=== PATIENT | female | born 1940 | race Caucasian/White ===

== ENCOUNTER → 2020-06-11 | Outpatient (CLI) | payer OTHER ==
[~2020-06-11] MED LIST: ALLOPURINOL 10100 M1 PO; CARDIZEM CD 30300 M1 PO; CARVEDILOL12.5 MG PO; DULOXETINE HCL60 MG PO; EVISTA PO; LEVOTHYROXINE100 MCG PO; LORAZEPAM 0.50.5 MG PO; NEURONTIN 300M300 M2 PO; OLMESARTAN MEDO40 MG PO; PRAVASTATIN SOD80 MG PO; PROBIOTIC1 EAC7 PO; VITAMIN D3100 MCG PO; WARFARIN SODIUM5 MG PO
== END ==
LOC: LAB 10:39
PROVIDERS: ATTEND Anesthesiology
DX: Z20.822 Contact with and (suspected) exposure to COVID-19 (principal)

== ENCOUNTER → 2020-06-13 | Day surgery (SDC) | payer OTHER, MEDICARE ==
[~2020-06-13] VITALS: Ht 154.9 cm; Wt 70.8 kg
--- NOTE | ~2020-06-13 | O ---
[facility] [place] [address] OPERATIVE REPORT Name: ROBERT MCLEAN Room #: [facility] [id number] Admission: 06/13/20 Attend Phys: Dwayne Wilson MD Discharge: Date of : 42 Report #: [id number] THIS REPORT FOR: cc: Dwayne Mulligan MD, John R. MD Quinn,Dwayne Argueta MD ~ DATE OF SERVICE: 06/13/2020 PREOPERATIVE DIAGNOSES: 1. History of malignancy, right breast. 2. Acquired absence bilateral breasts. 3. Suspected rupture/hematoma, left breast. 4. Excess redundancy skin following previous mastectomy, right lateral chest. POSTOPERATIVE DIAGNOSES: 1. History of malignancy, right breast. 2. Acquired absence bilateral breasts. 3. Suspected rupture/hematoma, left breast. 4. Excess redundancy skin following previous mastectomy, right lateral chest. PROCEDURES: 1. Removal of bilateral breast implants, both noted to be intact. 2. Replacement bilateral breast implants with [place] Memory[employer] smooth high profile Xtra breast implants, catalog #[id number] each containing 755 mL of gel silicone. 3. Excision of redundant skin, right lateral chest wall. SURGEON: Dwayne Wilson MD ANESTHESIA: General. ESTIMATED BLOOD LOSS: Minimal. DRAINS: None. COMPLICATIONS: None. COUNTS: Needle, sponge, instrument counts were correct at the end of the case. DESCRIPTION OF PROCEDURE: The patient is a 79-year-old female who presents following previous mastectomy approximately 10-15 years ago. She presents now with what appeared to be a rupture of her left breast implant on MRI. She presents now for definitive correction, replacement of the implants and she has asked that she would like to be slightly larger on each side. [facility] [address] [place] [address] OPERATIVE REPORT Name: ROBERT MCLEAN [place] Room #: [facility] [place]#: [id number] Admission: 06/13/20 Attend Phys: Dwayne Wilson MD Discharge: Date of : 42 Report #: [id number] DESCRIPTION OF PROCEDURE: The patient was marked in the holding area in the operating room. In general, the anterior chest was prepped and draped. The inframammary incisions were infiltrated with local, prepped and draped, incisions were created. On the right side, the pocket was entered. The implant was removed and the pocket was copiously irrigated. This implant was noted to be intact. Markings were made in the record terms of the documentation on the implant itself. The pocket was copiously irrigated. The sizer implant was then inserted as listed above, at which time the same procedure carried out on the left side. Upon entry into the pocket capsule, immediately fluid ____ forth and under pressure, it is ejected approximately 5 to 6 feet from the entry wound. The volume was collected and noted to be at least 200-300 mL of fluid, mostly old blood. It appeared to be quite old in nature. At this time, the capsule was completely opened and the implant was removed, noted to be intact again. The pocket was completely irrigated and scrubbed debrided, irrigated with antibiotic solution at which time the sizer implant was inserted on the side as well. The patient was placed in the sitting position. The overall effect was excellent. Therefore, the patient was placed supine. The implant sizers were removed. The pockets were copiously irrigated with antibiotic solution and then the permanent implants were inserted with the funnel no-touch technique. Further local antibiotic instilled just prior to completing wound closure with a 3-0 Monocryl on the capsule, Insorb skin arlette on the dermis and the skin with running 3-0 Monocryl, interrupted 5-0 nylon, Steri-Strips were later applied. The right lateral chest skin access was elliptically excised as previously marked in the holding area after being injected with local. The wound was closed after hemostasis was achieved and cautery with Insorb skin arlette and a running 3-0 Monocryl, interrupted 5-0 nylons and Steri-Strips again applied. Occlusive bulky dressing with an Kaz wrap applied. The patient tolerated the procedure well and was taken to the recovery room in stable condition to be discharged ____ prescriptions for pain meds and antibiotics and to see me in the office for any instructions with any problems at all. The skin excision was in excess of 25 cm in length. By: [id number] Dwayne Wilson MD /nt
[2020-06-13 12:12] LABS: HEMATOCRIT 47.2 % (37.0-47.0); HEMOGLOBIN 15.5 gm/dL (12.0-15.0)
[2020-06-13 12:27] LABS: APTT 21.6 Seconds (24.5-32.8); INR 0.98; PROTIME 10.7 Seconds (9.3-11.4)
[2020-06-13 12:44] VITALS: BP 130/89
--- NOTE | 2020-06-13 16:35 | EKG ---
[place] [address] [address] [place] [address] ELECTROCARDIOGRAM REPORT Name: ROBERT MCLEAN Room #: [facility]#: [id number] Admission: 06/13/20 Attend Phys: Dwayne Wilson MD Discharge: Date of : 42 Report #: [id number] [facility] Test Date: 2020-06-13 Test Time: 12:32:56 Pat Name: ROBERT MCLEAN Department: Room: Gender: [employer] T[employer]: TREVIN : 1940 Requested By: Dwayne Wilson Order Number: [id number] MD: Anil Gill Measurements Intervals Patriot Rate: 83 P: TN: QRS: -24 QRSD: 86 T: 5 QT: 420 QTc: 494 Interpretive Statements Atrial fibrillation Ventricular premature complex Borderline left axis deviation Minimal ST depression, lateral leads Borderline prolonged QT interval Compared to ECG 09/30/1995 10:08:00 ST (T wave) deviation now present Sinus rhythm no longer present Electronically Signed On 06-13-2020 16:34:51 CDT by Anil Gill [email or web address] <ELECTRONICALLY SIGNED> By: Anil Gill MD, [facility] 06/13/20 1634 1232 1232 Anil Gill MD, [facility] /EPI
--- NOTE | 2020-06-19 16:06 | PATH ---
[facility] [address] [address] PATHOLOGY RPT PROCEDURE Name: EYSIKA MARISCAL Room #: [facility] M.R.#: [id number] Admission: 06/13/20 Date of : 42 Discharge: Report #: [id number] Path Case #: [id number] [facility] Accession Number: [id number] . 01 Material submitted: . PART A: breast - RIGHT BREAST IMPLANT. Modifiers: right PART B: breast - LEFT BREAST IMPLANT. Modifiers: left . 01 Clinical history: . 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 02 Diagnosis: A. Breast, right breast implant, removal: - 570 gram breast implant with a 15.2 cm diameter (gross exam only). . B. Breast, left breast implant, removal: - 570 gram breast implant with a 15.2 cm diameter (gross exam only). (IUV:karen; 06/19/2020) QMS 06/19/2020 1538 Local . 02 Electronically signed: . Tracy Diana MD, Pathologist NPI- [id number] . 01 Gross description: . A. The specimen is received in formalin, labeled "Yesika Mariscal, right breast implant". Received is a 570 g intact implant measuring 15.2 x 15.2 x 3.6 cm in greatest dimensions. No distinguishable markings or engravings are grossly identified. Gross photographs are taken. Sections are not submitted. . B. The specimen is received in formalin, labeled "Yesika Mariscal, left breast implant". Received is a 570 g intact implant measuring 15.2 x 15.2 x 3.6 cm in greatest dimensions. No distinct bone markings or engravings are grossly identified. Gross photographs are taken. Sections are not submitted. (CAA; 06/14/2020) QA/[facility] 06/19/2020 1538 Local . 02 Pathologist provided ICD-10: N64.9 . 02 [place] [address] PATHOLOGY RPT PROCEDURE Name: YESIKA MARISCAL Room #: REG [facility] M.R.#: [id number] Admission: 06/13/20 Date of : 42 Discharge: Report #: [id number] Path Case #: [id number] Specimen Comment: A courtesy copy of this report has been sent to [phone] Specimen Comment: [phone] Specimen Comment: Report sent to / DR STARK Performed at: [address] [facility], [place], [place] [id number] MD Nestor Nick MD Phone: [phone] Performed at: [address] [facility] [id number] MD Tracy Diana MD Phone: [phone]
== END | disposition home or self-care (01) ==
LOC: OR
PROVIDERS: ATTEND Specialist
DX: N64.9 Disorder of breast, unspecified (principal); L98.7 Excessive and redundant skin and subcutaneous tissue; S20.02XA Contusion of left breast, initial encounter; Z90.13 Acquired absence of bilateral breasts and nipples; Z85.3 Personal history of malignant neoplasm of breast; I10 Essential (primary) hypertension; E78.5 Hyperlipidemia, unspecified; I48.91 Unspecified atrial fibrillation; F32.9 Major depressive disorder, single episode, unspecified; M10.9 Gout, unspecified; F41.9 Anxiety disorder, unspecified; Z85.528 Personal history of other malignant neoplasm of kidney; Z85.828 Personal history of other malignant neoplasm of skin; X58.XXXA Exposure to other specified factors, initial encounter; Y93.89 Activity, other specified; Y92.89 Other specified places as the place of occurrence of the external cause; Y99.8 Other external cause status
CPT/HCPCS: 50010; 50101; 50386; 50403; 50648; 56525; 56526; 56527; 58637; 58695; 62110; 62900; 70005

== ENCOUNTER → 2020-09-14 | Outpatient (CLI) | payer OTHER, MEDICARE | LOC: ULTRA 10:11 | PROVIDERS: ATTEND Specialist | DX: L76.34 Postprocedural seroma of skin and subcutaneous tissue following other procedure (principal) ==